=== PATIENT | male | born 1990 | race Caucasian/White ===

== ENCOUNTER 2017-03-26 22:02 | Emergency (ER) | payer OTHER ==
[~2017-03-26] VITALS: Ht 172.7 cm; Wt 72.6 kg
[~2017-03-26 22:02] MED LIST: ANAPROX DS550 MG PO; CIPRO250 MG PO; IBU800 M1 PO; NKHM; TORADOL10 MG PO; VICODIN 5/500 505 MG PO
[2017-03-26] MEDS ORDERED: MEDROL DOSEPAK4 MG PO (23:57)
[2017-03-26] MEDS ORDERED: HYDROCODONE BIT1 T11 PO (23:57)
[2017-03-26] MEDS ORDERED: CYCLOBENZAPRINE5 M3 PO (23:57)
== END 2017-03-27 00:38 | disposition home or self-care (01) ==
LOC: ED 22:02
DX: M54.16 Radiculopathy, lumbar region (principal); F17.200 Nicotine dependence, unspecified, uncomplicated

== ENCOUNTER 2017-04-26 23:40 | Emergency (ER) | payer OTHER ==
[~2017-04-26] VITALS: Ht 172.7 cm; Wt 68.0 kg
[~2017-04-26 23:40] MED LIST changes: +CYCLOBENZAPRINE5 M3 PO; +HYDROCODONE BIT1 T11 PO; +MEDROL DOSEPAK4 MG PO
[2017-04-27 00:16] LABS: BILIRUBIN NEGATIVE (NEGATIVE); BLOOD 2+ (NEGATIVE); CLARITY CLEAR (CLEAR); COLOR YELLOW (YELLOW); GLUCOSE NEGATIVE (NEGATIVE); KETONE NEGATIVE (NEGATIVE); LEUKO ESTERASE 1+ (NEGATIVE); NITRITE NEGATIVE (NEGATIVE); PH 5.5 (5.0-9.0); PROTEIN NEGATIVE (NEGATIVE); UROBILINOGEN 0.2 E.U./dl (0.2-1.0)
[2017-04-27 00:40] LABS: RBC 21-30 rbc/hpf (0-2); URINE REFLEX COMMENT YES (NO)
[2017-04-27] MEDS ORDERED: CIPRO500 MG PO (01:48)
[2017-04-27] MEDS ORDERED: Motrin,Rufen800 MG PO (01:48)
== END 2017-04-27 02:05 | disposition home or self-care (01) ==
LOC: ED 23:40
PROVIDERS: Physician Assistant
DX: N34.2 Other urethritis (principal); F17.200 Nicotine dependence, unspecified, uncomplicated

== ENCOUNTER 2017-06-12 21:33 | Emergency (ER) | payer OTHER ==
[~2017-06-12] VITALS: Ht 172.7 cm; Wt 68.0 kg
[~2017-06-12 21:33] MED LIST changes: +CIPRO500 MG PO; +Motrin,Rufen800 MG PO
[2017-06-12] MEDS ORDERED: AUGMENTIN 875875 MG PO (22:48)
== END 2017-06-12 22:42 | disposition home or self-care (01) ==
LOC: ED 21:33
DX: S61.412A Laceration without foreign body of left hand, initial encounter (principal); F17.200 Nicotine dependence, unspecified, uncomplicated; W22.8XXA Striking against or struck by other objects, initial encounter; Y93.89 Activity, other specified; Y92.89 Other specified places as the place of occurrence of the external cause; Y99.8 Other external cause status

== ENCOUNTER 2017-10-30 11:51 | Emergency (ER) | payer OTHER ==
[~2017-10-30] VITALS: Ht 172.7 cm; Wt 72.6 kg
[~2017-10-30 11:51] MED LIST changes: +AUGMENTIN 875875 MG PO
[2017-10-30] MEDS ORDERED: NAPROSYN500 MG PO (14:11)
[2017-10-30] MEDS ORDERED: MEDROL DOSEPAK4 MG PO (14:11)
== END 2017-10-30 14:38 | disposition home or self-care (01) ==
LOC: ED 11:51
DX: M54.12 Radiculopathy, cervical region (principal); F17.200 Nicotine dependence, unspecified, uncomplicated; Z79.899 Other long term (current) drug therapy

== ENCOUNTER 2020-05-10 22:01 | Emergency (ER) | payer OTHER ==
[~2020-05-10] VITALS: Ht 172.7 cm; Wt 72.6 kg
[~2020-05-10 22:01] MED LIST changes: +NAPROSYN500 MG PO
[2020-05-11] MEDS ORDERED: NAPROSYN500 MG PO (00:36)
== END 2020-05-11 01:40 | disposition home or self-care (01) ==
LOC: ED 22:01
DX: M25.461 Effusion, right knee (principal); Z79.899 Other long term (current) drug therapy

== ENCOUNTER 2020-06-25 02:26 | Emergency (ER) | payer OTHER | END 2020-06-25 03:54 | disposition home or self-care (01) | LOC: ED 02:26 | DX: H16.133 Photokeratitis, bilateral (principal) ==

== ENCOUNTER 2020-11-17 21:04 | Emergency (ER) | payer SELFPAY ==
[~2020-11-17] VITALS: Ht 172.7 cm; Wt 74.8 kg
== END 2020-11-17 22:55 | disposition left against medical advice (07) ==
LOC: ED 21:04
DX: S49.92XA Unspecified injury of left shoulder and upper arm, initial encounter (principal); Z53.21 Procedure and treatment not carried out due to patient leaving prior to being seen by health care provider; X58.XXXA Exposure to other specified factors, initial encounter; Y93.89 Activity, other specified; Y92.89 Other specified places as the place of occurrence of the external cause; Y99.8 Other external cause status

== ENCOUNTER 2021-05-22 05:38 | Emergency (ER) | payer SELFPAY ==
[~2021-05-22] VITALS: Ht 172.7 cm; Wt 72.6 kg
== END 2021-05-22 07:29 | disposition home or self-care (01) ==
LOC: ED 05:38
DX: R51.9 Headache, unspecified (principal)